=== PATIENT | male | born 1980 | race Caucasian/White ===

== ENCOUNTER 2019-02-10 05:00 | Emergency (ER) | payer BC ==
[~2019-02-10] VITALS: Ht 172.7 cm; Wt 54.4 kg
[2019-02-10 05:00] VITALS: BP_SYST 126
--- NOTE | 2019-02-10 05:06 | NUR ---
Patient to ER bed 3 to gown for evaluation. Side rails up. Report given to Anatoliy OVALLE.
--- NOTE | 2019-02-10 05:13 | NUR ---
Pt complains of anxiety, with shortness of breath. Pt states he's been feeling anxious since Wednesday, went to urgent care and was given medication to help. Pt then went to PCP the next day and was prescribed Seroquel 50mg PO BID. Per patient, he took the medication as prescribed until Wednesday but cannot take it anymore because "it makes me feel too cloudy." Pt denies any chest pain. No other injuries/complaints per patient or noted.
--- NOTE | 2019-02-10 05:23 | NUR ---
ER Dr. Llanes at bedside examining patient.
[2019-02-10] MEDS ORDERED: LORazepam 1 MG TABLET PO ONE (05:30)
--- NOTE | 2019-02-10 05:44 | NUR ---
# 18 gauge angiocath placed to LEFT AC. Use of asceptic technique. Opsite placed over site. Blood return noted. Flushed with 10 cc of normal saline. No evidence of infiltration noted. Patient tolerated well.
[2019-02-10 05:47] LABS: BASOPHILS # (AUTO) 0.1 K/uL (0.0-0.2); BASOPHILS % (AUTO) 0.7 % (0.0-2.0); EOSINOPHILS # (AUTO) 0.1 K/uL (0.0-0.4); EOSINOPHILS % (AUTO) 0.6 % (0.0-4.0); HEMATOCRIT 45.7 % (36-54); HEMOGLOBIN 15.4 g/dL (14.0-18.0); LYMPHOCYTES # (AUTO) 2.1 K/uL (1.0-5.5); MEAN CORPUSCULAR HEMOGLOBIN 27 pg (27-31); MEAN CORPUSCULAR HGB CONC 34 % (32-36); MEAN CORPUSCULAR VOLUME 80 fL (79.0-98.0); MONOCYTES # (AUTO) 0.9 K/uL (0.0-1.0); MONOCYTES % (AUTO) 10.7 % (1.7-9.3); NEUTROPHILS # (AUTO) 5.5 K/uL (1.8-7.7); PLATELET COUNT (AUTO) 364 K/uL (130-430); RED BLOOD CELL COUNT(AUTO) 5.73 MIL/uL (4.2-6.2); RED CELL DISTRIBUTION WIDTH 13.5 % (9.0-15.0); WHITE BLOOD COUNT (AUTO) 8.6 K/uL (4.8-10.8)
[2019-02-10 05:56] LABS: ANION GAP 13 (5-15); CALCIUM 9.7 mg/dL (8.4-11.0); CHLORIDE 101 mmol/L (98-107); GLUCOSE 97 mg/dL (70-99); POTASSIUM 3.8 mmol/L (3.5-5.1); SODIUM SERUM 140 mmol/L (136-145); UREA NITROGEN, BLOOD 15 mg/dL (8-21)
[2019-02-10] MEDS ORDERED: NACL 0.9% 1,000 ML IV ONE (06:00)
[2019-02-10] MEDS ORDERED: LORazepam 2 MG/ML VIAL IVP ONE (06:00)
[2019-02-10 06:05] LABS: GFR AFRICAN AMERICAN 140 mL/min (>90)
[2019-02-10] MEDS ORDERED: ONDANSETRON HCL 4 MG/2 ML VIAL ONE (06:05)
[2019-02-10] MEDS ORDERED: LORazepam 2 MG/ML VIAL (FOR ER USE) ONE (06:05)
[2019-02-10] MEDS ORDERED: ONDANSETRON HCL 4 MG/2 ML VIAL IVP ONE (06:15)
[2019-02-10] MEDS ORDERED: ONDANSETRON HCL 4 MG/5 ML UDC PO ONE (06:15)
[2019-02-10 07:05] VITALS: BP_SYST 122
--- NOTE | 2019-02-10 07:05 | NUR ---
Patient given written and verbal discharge instructions and verbalizes understanding. ER MD discussed with patient the results and treatment provided. Patient in stable condition. ID arm band removed. IV catheter removed intact and dressing applied, no active bleeding. No Rx given. Patient educated on pain management and to follow up with PMD. Pain Scale 0. Opportunity for questions provided and answered. Medication side effect fact sheet provided.
== END 2019-02-10 07:05 | disposition home or self-care (01) ==
LOC: SED 05:00
DX: F41.9 Anxiety disorder, unspecified (principal); R07.89 Other chest pain
CPT/HCPCS: 36415; 71045; 80048; 83735; 84484; 85025; 85379; 93005; 96374; 96375; 99284; J2060; J2405; J7030

== ENCOUNTER 2021-10-28 18:09 | Emergency (ER) | payer BC, SELFPAY ==
[~2021-10-28] VITALS: Ht 172.7 cm; Wt 60.3 kg
--- NOTE | 2021-10-28 18:39 | NUR ---
Patient to ER bed H1 to gown for evaluation. Side rails up.
--- NOTE | 2021-10-28 18:40 | NUR ---
Note hunter in EDM - 10/28/21 at 1854 by [email or web address] Pt brought by self, A&Ox4, pt presents to ER with R lower abdominal pain , N/V since today, skin pink and warm, cap refill <3, VSS, respirations even and unlabored, will cont to monitor.
--- NOTE | 2021-10-28 18:40 | NUR ---
Pt brought by family, A&Ox4, pt presents to ER with R lower abdominal pain , N/V since today, skin pink and warm, cap refill <3, VSS, respirations even and unlabored, will cont to monitor.
[2021-10-28 18:43] VITALS: BP_SYST 131
--- NOTE | 2021-10-28 18:55 | NUR ---
pt alert and oriented, iv in left forearm in place, complaining of pain to right side of abdomen.
[2021-10-28] MEDS ORDERED: KETOROLAC TROMETHAMINE 30 MG VIAL IVP ONE (19:00)
[2021-10-28] MEDS ORDERED: KETOROLAC TROMETHAMINE 60 MG/2 ML VIAL IM ONE (19:00)
[2021-10-28] MEDS ORDERED: NACL 0.9% 1,000 ML IV ONE ×2 (19:00)
[2021-10-28] MEDS ORDERED: ONDANSETRON HCL 4 MG/2 ML VIAL IVP ONE ×3 (19:00)
[2021-10-28 19:17] LABS: BASOPHILS # (AUTO) 0.1 K/uL (0.0-0.2); BASOPHILS % (AUTO) 0.8 % (0.0-2.0); EOSINOPHILS # (AUTO) 0.1 K/uL (0.0-0.4); HEMATOCRIT 40.8 % (36-54); HEMOGLOBIN 14.1 g/dL (14.0-18.0); LYMPHOCYTES # (AUTO) 2.5 K/uL (1.0-5.5); LYMPHOCYTES % (AUTO) 23.2 % (20.5-51.5); MEAN CORPUSCULAR HEMOGLOBIN 27 pg (27-31); MEAN CORPUSCULAR HGB CONC 34 % (32-36); MEAN CORPUSCULAR VOLUME 78 fL (79.0-98.0); MONOCYTES # (AUTO) 0.8 K/uL (0.0-1.0); MONOCYTES % (AUTO) 7.5 % (1.7-9.3); NEUTROPHILS # (AUTO) 7.2 K/uL (1.8-7.7); NEUTROPHILS % (AUTO) 67.5 % (40.0-70.0); PLATELET COUNT (AUTO) 339 K/uL (130-430); RED BLOOD CELL COUNT(AUTO) 5.22 MIL/uL (4.2-6.2); RED CELL DISTRIBUTION WIDTH 13.5 % (9.0-15.0); WHITE BLOOD COUNT (AUTO) 10.7 K/uL (4.8-10.8)
--- NOTE | 2021-10-28 19:23 | NUR ---
MIGUEL Gregg at bedside examining patient.
[2021-10-28 19:35] LABS: CALCIUM 9.1 mg/dL (8.4-11.0); CREATININE 0.86 mg/dL (0.55-1.30); POTASSIUM 3.7 mmol/L (3.5-5.1)
[2021-10-28] MEDS ORDERED: MORPHINE 4 MG INJ. 4 MG/ML VIAL IVP ONE (19:45)
[2021-10-28 19:49] LABS: ALBUMIN 4.3 g/dL (3.4-4.8); TOTAL BILIRUBIN 0.7 mg/dL (0.0-1.0)
[2021-10-28] MEDS ORDERED: OXYC1TAB10 PO (22:15)
[2021-10-28] MEDS ORDERED: OXYC-128 PO ×2 (22:17)
[2021-10-28] MEDS ORDERED: MORPHINE 4 MG INJ. 4 MG/ML VIAL IM ONE (22:45)
[2021-10-28] MEDS ORDERED: MORPHINE SULFATE 10 MG/ML VIAL ONE (22:48)
--- NOTE | 2021-10-28 22:51 | NUR ---
patient medicated as ordered w/ 8mg of morphine im to left deltoid. Will observe for any adverse reaction. bed to low position sr up, continue to monitor.
[2021-10-28 22:53] VITALS: BP_SYST 123
--- NOTE | 2021-10-28 22:55 | NUR ---
Patient given written and verbal discharge instructions and verbalizes understanding. ER MD discussed with patient the results and treatment provided. Patient in stable condition. ID arm band removed. IV catheter removed intact and dressing applied, no active bleeding. Rx of oxycodone given. Patient educated on pain management and to follow up with PMD. Pain Scale 5. Opportunity for questions provided and answered. Medication side effect fact sheet provided.
[2021-10-28] MEDS ORDERED: MORPHINE SULFATE 10 MG/ML VIAL IM ONE (23:00)
== END 2021-10-28 22:55 | disposition home or self-care (01) ==
LOC: SED 18:09
DX: N20.0 Calculus of kidney (principal); R55 Syncope and collapse; Z79.899 Other long term (current) drug therapy
CPT/HCPCS: 36415; 74176; 76376; 80053; 83690; 85025; 96361; 96372; 96374; 96375; 99285; J1885; J2270 ×2; J2405; J7030